=== PATIENT | male | born 1975 | race Caucasian/White ===

== ENCOUNTER 2019-09-20 14:45 | Emergency (ER) | payer OTHER ==
[~2019-09-20] VITALS: Ht 188 cm; Wt 82.5 kg
--- NOTE | 2019-09-20 15:34 | EKG ---
[address] [address] Test Date: 2019-09-20 Test Time: 15:27:00 Pat Name: MATTHEW ESQUIVEL Department: Room: Gender: M General Internal Medicine Physician: AYAN : [id number] Requested By: DON GREGG Order Number: [id number] Reading MD: Measurements Intervals [place] Rate: 72 P: 24 MD: 164 QRS: 66 QRSD: 88 T: 52 QT: 370 QTc: 407 Interpretive Statements SINUS RHYTHM NO SPECIFIC ECG ABNORMALITIES RI6.02 No previous ECG available for comparison
--- NOTE | 2019-09-20 15:35 | RAD ---
Chest, PA and Lateral: Technique: PA and lateral views of the chest were obtained. History: Ingestion. Comparison: None. Findings: The heart and pulmonary vasculature appear within normal limits. The lungs are clear. The pleural margins are clear. Impression: No acute chest process is seen. Electronically signed by: Antonio Camacho MD (09/20/2019 3:32 PM) [id number]
[2019-09-20 15:46] LABS: BASO % 1 % (0-3); EOS # 0.1 x10^3/uL (0.0-0.7); EOS % 2 % (0-3); HEMATOCRIT 43.3 % (39.0-53.0); LYMPH # 2.2 x10^3/uL (1.0-4.8); LYMPH % 25 % (24-48); MEAN CORPUSCULAR HEMOGLOBIN 36 pg (25-35); MEAN CORPUSCULAR HGB CONC 35 g/dL (31-37); MEAN CORPUSCULAR VOLUME 104 fL (79-100); MONO # 0.6 x10^3/uL (0.0-1.1); MONO % 7 % (0-9); NEUT # 5.8 x10^3uL (1.8-7.7); NEUT % 66 % (31-73); PLATELET COUNT 250 x10^3/uL (140-400); RED BLOOD COUNT 4.16 x10^6/uL (4.30-5.70); RED CELL DISTRIBUTION WIDTH 12.8 % (11.5-14.5); WHITE BLOOD COUNT 8.8 x10^3/uL (4.0-11.0)
[2019-09-20 15:48] LABS: CALCIUM 8.8 mg/dL (8.5-10.1); CREATININE 1.3 mg/dL (0.7-1.3); GFR 60.5; POTASSIUM 3.7 mmol/L (3.5-5.1)
[2019-09-20 15:53] LABS: ALBUMIN 3.7 g/dL (3.4-5.0); ALBUMIN/GLOBULIN RATIO 1.1 (1.0-1.7); TOTAL BILIRUBIN 0.3 mg/dL (0.2-1.0)
--- NOTE | 2019-09-20 16:00 | PHYS DOC ---
Past History Past Medical History: No Pertinent History (DON GREGG MD) Past Surgical History: No Surgical History (DON GREGG MD) Alcohol Use: Occasionally (DON GREGG MD) Adult General Chief Complaint Chief Complaint: ACCIDENTAL INGESTION HPI HPI Patient is a 43 year old male who presents with ingestion of brake cleaner and presser. He states that he came back from lunch and had a water bottle at his workstation. He states the coworker sprayed 2 pumps of break cleaner and presser into this water. He took a large swig of the water and realized it tasted bad and did not drink anymore. He shortly thereafter had an episode of nausea and vomiting. He is now feeling back to normal. He did eat some yogurt and drink some water prior to arrival. (DON GREGG MD) Review of Systems Review of Systems General: Denies fever, chills, sweats, fatigue Eyes: Denies drainage, blurred vision, eye redness HENT: Denies rhinorrhea, sore throat, earache Respiratory: Denies cough, shortness of breath, wheezing Cardiac: Denies edema, palpitations, chest pain GI: Reports nausea, vomiting. Denies abdominal pain MSK: Denies neck pain[] Skin: Denies rash, jaundice Neuro: Denies headache, dizziness Psychiatric: Denies SI/HI (DON GREGG MD) Allergies Allergies Allergies Coded Allergies Type Severity Reaction Last Updated Verified No Known Drug Allergies 09/20/19 No (DON GREGG MD) Physical Exam Physical Exam General: Awake, alert, NAD. Well Nourished, well hydrated. Cooperative HEENT: Atraumatic, EOMI, PERRL, airway patent, moist oral mucosa Neck: Supple, trachea midline Respiratory: CTA bilaterally, normal effort, no wheezing/crackles CV: Tachycardia, no murmur, cap refill <2 GI: Soft, nondistended, nontender, no masses MSK: No obvious deformities Skin: Warm, dry, intact Neuro: A&O x3, speech NL, sensory and motor grossly intact, no focal deficits Psych: Normal affect, normal mood, not suicidal or homicidal (DON GREGG MD) Current Patient Data Vital Signs Vital Signs Date Time Temp Pulse Resp B/P (MAP) Pulse Ox O2 Delivery O2 Flow Rate FiO2 09/20/19 14:50 98.6 83 28 160/99 (119) 96 Room Air Lab Results Laboratory Tests Test 09/20/19 15:22 White Blood Count 8.8 x10^3/uL (4.0-11.0) Red Blood Count 4.16 x10^6/uL (4.30-5.70) L Hemoglobin 15.0 g/dL (13.0-17.5) Hematocrit 43.3 % (39.0-53.0) Mean Corpuscular Volume 104 fL (79-100) H Mean Corpuscular Hemoglobin 36 pg (25-35) H Mean Corpuscular Hemoglobin Concent 35 g/dL (31-37) Red Cell Distribution Width 12.8 % (11.5-14.5) Platelet Count 250 x10^3/uL (140-400) Neutrophils (%) (Auto) 66 % (31-73) Lymphocytes (%) (Auto) 25 % (24-48) Monocytes (%) (Auto) 7 % (0-9) Eosinophils (%) (Auto) 2 % (0-3) Basophils (%) (Auto) 1 % (0-3) Neutrophils # (Auto) 5.8 x10^3uL (1.8-7.7) Lymphocytes # (Auto) 2.2 x10^3/uL (1.0-4.8) Monocytes # (Auto) 0.6 x10^3/uL (0.0-1.1) Eosinophils # (Auto) 0.1 x10^3/uL (0.0-0.7) Basophils # (Auto) 0.0 x10^3/uL (0.0-0.2) Sodium Level 138 mmol/L (136-145) Potassium Level 3.7 mmol/L (3.5-5.1) Chloride Level 103 mmol/L (98-107) Carbon Dioxide Level 26 mmol/L (21-32) Anion Gap 9 (6-14) Blood Urea Nitrogen 13 mg/dL (8-26) Creatinine 1.3 mg/dL (0.7-1.3) Estimated GFR (Cockcroft-Gault) 60.5 BUN/Creatinine Ratio 10 (6-20) Glucose Level 121 mg/dL (70-99) H Calcium Level 8.8 mg/dL (8.5-10.1) Total Bilirubin 0.3 mg/dL (0.2-1.0) Aspartate Amino Transferase (AST) 28 U/L (15-37) Alanine Aminotransferase (ALT) 32 U/L (16-63) Alkaline Phosphatase 100 U/L (46-116) Total Protein 7.0 g/dL (6.4-8.2) Albumin 3.7 g/dL (3.4-5.0) Albumin/Globulin Ratio 1.1 (1.0-1.7) (DON GREGG MD) EKG EKG [] (DON GREGG MD) Radiology/Procedures Radiology/Procedures [] (DON GREGG MD) Course & Med Decision Making Course & Med Decision Making Pertinent Labs and Imaging studies reviewed. (See chart for details) Patient is a 43-year-old male who presents to the emergency room with ingestion of brake cleaner and presser. We have called and discussed this with poison control. This cleaner and presser contains methanol and hydrocarbons. Chest x-ray, EKG, CBC, CMP, osmolality, UA, methanol level will be ordered. Patient will be observed here in the emergency room and given fluids. Poison control recommends letting him drink water and we will give him water here in the emergency room. (DON GREGG MD) Course & Med Decision Making Comprehensive signout obtained by off going physician I personally saw patient, reevaluated numerous times in ER, remained hemodynamically stable and non-concerning on presentation Methanol level was eventually obtained from local hospital, was less than 10, per poison control recommendations, patient has eclipse total time of observation and with negative methanol level, is fit for discharge home I agree with this decision given patient's clinical presentation and the fact that methanol level was less than 10 Discussed ED course at length with patient, joint decision to discharge home in stable condition Strict return precautions discussed with good understanding by patient, all questions and concerns addressed prior to ER departure (MELYSSA CARTER DO) Dragon Disclaimer Dragon Disclaimer This electronic medical record was generated, in whole or in part, using a voice recognition dictation system. (DON GREGG MD) Departure Departure: Impression: Primary Impression: Ingestion of corrosive chemical Disposition: HOME/RESIDENCE PRIOR TO ADM Condition: IMPROVED Referrals: PCP,NO (PCP) Justification of Admission: Justification of Admission: Justification of Admission Dx: Yes (DON GREGG MD) Justification of Admission Dx: N/A (MELYSSA CARTER DO) DON GREGG MD Sep 20, 2019 16:00 MELYSSA CARTER DO Sep 20, 2019 19:51
[2019-09-20 16:50] LABS: BILIRUBIN,URINE NEG (NEG); CLARITY,URINE CLEAR; COLOR,URINE YELLOW; GLUCOSE,URINE NEG (NEG)
[2019-09-20 16:51] LABS: BACTERIA,URINE 0 /HPF (0-FEW); NITRITE,URINE NEG (NEG); RBC,URINE OCC /HPF (0-2); SQUAMOUS EPITHELIAL CELL,UR OCC /LPF; UROBILINOGEN,URINE 0.2 mg/dL (0.2 mg/dL); WBC,URINE OCC /HPF (0-4)
[2019-09-20 19:50] VITALS: BP 146/76
== END 2019-09-20 20:00 | disposition home or self-care (01) ==
LOC: ER 14:45
DX: T54.91XA Toxic effect of unspecified corrosive substance, accidental (unintentional), initial encounter (principal); R11.2 Nausea with vomiting, unspecified; Y92.89 Other specified places as the place of occurrence of the external cause
CPT/HCPCS: 36415; 71046; 80053; 81001; 83930; 83935; 85025; 93005; 99285-25